=== PATIENT | female | born 1945 | race African-American/Black ===

== ENCOUNTER 2017-07-13 22:27 | Inpatient (IN) | payer MEDICAID, MEDICARE, OTHER ==
[~2017-07-13] VITALS: Ht 171.4 cm; Wt 52.2 kg
[~2017-07-13 22:27] MED LIST: CALC-146 PO
[2017-07-13] MEDS ORDERED: MORPHINE SULFATE 4 MG/ML CPJ (NOT FOR IM USE) IV STA (22:58)
[2017-07-13] MEDS ORDERED: SODIUM CHLORIDE 0.9% 1,000 ML IV ONE (22:58)
[2017-07-13] MEDS ORDERED: CEFTRIAXONE 1 G PREMIX 50 ML IV ONE (23:15)
[2017-07-13] MEDS ORDERED: METRONIDAZOLE 500 MG PREMIX 100 ML IV ONE (23:15)
[2017-07-13] MEDS ORDERED: ONDANSETRON HCL 4MG/2ML VIAL IV ONE (23:15)
[2017-07-13] MEDS ORDERED: HYDROMORPHONE HCL/PF 2MG/ML CPJ IV ONE (23:30)
[2017-07-14 00:07] LABS: BASOPHILS % 0.3 % (0.0-2.0); HEMATOCRIT. 39.5 % (36.0-48.0); HEMOGLOBIN. 12.9 g/dL (12.0-16.0); LYMPHOCYTES % 16.3 % (20.0-50.0); MEAN CORPUSCULAR HEMOGLOBIN 29.5 pg (28.0-32.0); MEAN CORPUSCULAR VOLUME 90.4 fL (81.0-99.0); MONOCYTES % 5.5 % (2.0-8.0); NEUTROPHILS % 77.9 % (40.0-76.0); PLATELET 207 x1000/uL (130-400); RED BLOOD CELL COUNT 4.37 mill/uL (4.2-5.4); RED CELL DISTRIBUTION WIDTH 13.9 % (11.6-14.6)
[2017-07-14 00:12] LABS: CHLORIDE 107 mEq/L (98-107)
[2017-07-14 00:26] LABS: INR 1.1; PROTHROMBIN TIME 11.4 sec (9.4-11.6)
[2017-07-14] MEDS ORDERED: IOHEXOL-350 100 ML BOTTLE ONE (02:32)
[2017-07-14 04:15] LABS: CLARITY URINE CLEAR (CLEAR); COLOR URINE YELLOW (YELLOW); KETONES URINE 1+ (NEGATIVE); LEUKOCYTE ESTERASE URINE NEGATIVE (NEGATIVE); NITRITE URINE NEGATIVE (NEGATIVE); OCCULT BLOOD URINE NEGATIVE (NEGATIVE); PROTEIN URINE TRACE (NEGATIVE); SPECIFIC GRAVITY URINE 1.084 (1.005-1.030); UROBILINOGEN URINE 0.2 E.U./dL (0.2-1.0)
[2017-07-14] MEDS ORDERED: HYDROMORPHONE HCL/PF 2MG/ML CPJ IV ONE (06:15)
[2017-07-14 11:00] VITALS: BP 121/70
[2017-07-14] MEDS ORDERED: MORPHINE SULFATE 4 MG/ML CPJ (NOT FOR IM USE) IV ONE (12:30)
[2017-07-14] MEDS ORDERED: ACETAMINOPHEN 650MG/20.3ML UDC GT PRN (12:45)
[2017-07-14] MEDS ORDERED: LORAZEPAM 0.5MG TABLET PO PRN (12:45)
[2017-07-14] MEDS ORDERED: ACETAMINOPHEN 650MG SUPP PR PRN (12:45)
[2017-07-14] MEDS ORDERED: NA PHOS,M-B/NA PHOS,DI-BA ENEMA 118ML PR PRN (12:45)
[2017-07-14] MEDS ORDERED: CLONIDINE 0.1MG TABLET PO PRN (12:45)
[2017-07-14] MEDS ORDERED: ACETAMINOPHEN 325MG TABLET PO PRN (12:45)
[2017-07-14] MEDS ORDERED: DIPHENHYDRAMINE 50MG/ML VIAL IV PRN (12:45)
[2017-07-14] MEDS ORDERED: HYDROCODONE/ACETAMINOPHEN 5/325MG TABLET PO PRN (13:00)
[2017-07-14 13:50] VITALS: BP 103/55
[2017-07-14] MEDS ORDERED: MORPHINE SULFATE 4 MG/ML CPJ (NOT FOR IM USE) IV PRN (14:00)
[2017-07-14] MEDS ORDERED: SODIUM CHLORIDE 0.9% 1,000 ML IV SCH (14:00)
[2017-07-14 16:20] VITALS: BP 152/59
[2017-07-14 17:18] LABS: T4 FREE 1.27 ng/dL (0.76-1.46)
[2017-07-14] MEDS: MORPHINE SULFATE 4 MG/ML CPJ (NOT FOR IM USE) IV PRN ×2 (17:28→21:35)
[2017-07-14] MEDS: ASPIRIN 81MG EC TABLET PO SCH (17:28)
[2017-07-14] MEDS ORDERED: KETOROLAC 15MG/ML VIAL IV PRN (17:30)
[2017-07-14] MEDS: ONDANSETRON HCL 4MG/2ML VIAL IV PRN (17:33)
[2017-07-14] MEDS ORDERED: LOSA50TA20 PO (17:37)
[2017-07-14] MEDS ORDERED: DICYCLOMINE HCL 10MG CAPSULE PO PRN (18:00)
[2017-07-14] MEDS ORDERED: DICYCLOMINE 10 MG/5 ML ORAL SYR PO PRN (18:00)
[2017-07-14] MEDS: DEXT 5%/0.45% NACL 1000ML 1,000 ML IV SCH (18:43)
[2017-07-14] MEDS ORDERED: LOSA25TA12 PO (18:54)
[2017-07-14] MEDS: MAGNESIUM/ALUMINUM HYDROXIDE/SIMETHICONE 30ML UDC PO PRN (19:26)
[2017-07-14 20:00] VITALS: BP 135/48
[2017-07-15] VITALS: BP 123/60
[2017-07-15] MEDS: MORPHINE SULFATE 4 MG/ML CPJ (NOT FOR IM USE) IV PRN ×3 (01:45→11:00)
[2017-07-15 04:00] VITALS: BP 121/62
[2017-07-15] MEDS: DEXT 5%/0.45% NACL 1000ML 1,000 ML IV SCH ×2 (04:08→15:24)
[2017-07-15 06:46] LABS: BASOPHILS % 0.3 % (0.0-2.0); EOSINOPHILS % 0.3 % (0.0-5.0); HEMOGLOBIN. 13.5 g/dL (12.0-16.0); LYMPHOCYTES % 20.1 % (20.0-50.0); MEAN CORPUSCULAR HEMOGLOBIN 29.6 pg (28.0-32.0); MEAN CORPUSCULAR VOLUME 89.8 fL (81.0-99.0); MEAN PLATELET VOLUME 9.2 fl (7.4-10.4); MONOCYTES % 8.5 % (2.0-8.0); NEUTROPHILS % 70.8 % (40.0-76.0); PLATELET 210 x1000/uL (130-400); RED BLOOD CELL COUNT 4.56 mill/uL (4.2-5.4); RED CELL DISTRIBUTION WIDTH 13.9 % (11.6-14.6)
[2017-07-15 08:00] VITALS: BP 126/57
[2017-07-15 08:01] LABS: CHLORIDE 107 mEq/L (98-107)
[2017-07-15 08:05] LABS: HDL CHOLESTEROL 67 mg/dL (40-59); LDL CHOLESTEROL 54 mg/dL (5-100); PHOSPHORUS 3.4 mg/dL (2.5-4.9)
[2017-07-15] MEDS: ASPIRIN 81MG EC TABLET PO SCH (09:00)
[2017-07-15] MEDS: PANTOPRAZOLE SODIUM 40 MG/VIAL IV SCH (09:10)
[2017-07-15 12:00] VITALS: BP 142/52
[2017-07-15] MEDS: ONDANSETRON HCL 4MG/2ML VIAL IV PRN ×2 (13:02→23:19)
[2017-07-15] MEDS ORDERED: LORAZEPAM 2MG/ML CPJ IV PRN (13:30)
[2017-07-15 16:00] VITALS: BP 122/42
[2017-07-15] MEDS: HYDROMORPHONE HCL/PF 2MG/ML CPJ IV PRN ×2 (17:14→23:21)
[2017-07-15] MEDS: KETOROLAC 15MG/ML VIAL IV PRN (19:48)
[2017-07-15 20:00] VITALS: BP 128/48
[2017-07-16] VITALS: BP 114/54
[2017-07-16] MEDS: KETOROLAC 15MG/ML VIAL IV PRN ×4 (02:36→23:31)
[2017-07-16 04:00] VITALS: BP 107/40
[2017-07-16] MEDS: DEXT 5%/0.45% NACL 1000ML 1,000 ML IV SCH (05:31)
[2017-07-16] MEDS: ONDANSETRON HCL 4MG/2ML VIAL IV PRN (05:43)
[2017-07-16] MEDS: HYDROMORPHONE HCL/PF 2MG/ML CPJ IV PRN ×2 (05:44→20:16)
[2017-07-16 07:35] LABS: BASOPHILS % 0.3 % (0.0-2.0); EOSINOPHILS % 0.6 % (0.0-5.0); HEMATOCRIT. 41.4 % (36.0-48.0); HEMOGLOBIN. 13.8 g/dL (12.0-16.0); LYMPHOCYTES % 20.4 % (20.0-50.0); MEAN CORPUSCULAR HEMOGLOBIN 29.8 pg (28.0-32.0); MEAN CORPUSCULAR VOLUME 89.8 fL (81.0-99.0); MEAN PLATELET VOLUME 9.4 fl (7.4-10.4); NEUTROPHILS % 67.7 % (40.0-76.0); PLATELET 203 x1000/uL (130-400); RED BLOOD CELL COUNT 4.61 mill/uL (4.2-5.4); RED CELL DISTRIBUTION WIDTH 13.8 % (11.6-14.6)
[2017-07-16 08:00] VITALS: BP 129/57
[2017-07-16] MEDS: ASPIRIN 81MG EC TABLET PO SCH (08:03)
[2017-07-16] MEDS: PANTOPRAZOLE SODIUM 40 MG/VIAL IV SCH (08:57)
[2017-07-16] MEDS ORDERED: ACETAMINOPHEN 650MG SUPP PR PRN (13:00)
[2017-07-16] MEDS ORDERED: ONDANSETRON HCL 4MG/2ML VIAL IV PRN ×2 (13:00→14:15)
[2017-07-16] MEDS ORDERED: MORPHINE SULFATE 4 MG/ML CPJ (NOT FOR IM USE) IV PRN (13:00)
[2017-07-16] MEDS ORDERED: ROCURONIUM BROMIDE 10MG/ML VIAL 5ML IV ONE (13:41)
[2017-07-16] MEDS ORDERED: PROPOFOL 200MG/20ML VIAL IV ONE (13:41)
[2017-07-16] MEDS ORDERED: CEFAZOLIN SODIUM 1000MG/VIAL ONE (13:59)
[2017-07-16] MEDS ORDERED: DEXAMETHASONE 4MG/ML 1ML VIAL ONE (13:59)
[2017-07-16] MEDS ORDERED: VASOPRESSIN 20 UNIT/ML 1ML ONE (14:10)
[2017-07-16] MEDS ORDERED: HYDROMORPHONE HCL/PF 2MG/ML CPJ IV PRN (14:15)
[2017-07-16] MEDS ORDERED: LABETALOL 5MG/ML SYR 20 MG/4 ML SYRINGE IV PRN (14:15)
[2017-07-16] MEDS ORDERED: SKIN ADHESIVE 0.7 GM EA TOP ONE (14:32)
[2017-07-16] MEDS ORDERED: NEOSTIGMINE METHYLSULFATE 1MG/ML 10 ML VIAL ONE (14:34)
[2017-07-16] MEDS ORDERED: GLYCOPYRROLATE 0.2 MG/ML 2ML VIAL ONE ×2 (14:34→14:35)
[2017-07-16] MEDS: MEPERIDINE HCL/PF 25MG/ML CPJ IV PRN ×2 (15:27→15:50)
[2017-07-16 17:25] VITALS: BP 141/71
[2017-07-16] MEDS ORDERED: DEXTROSE 50% WATER 50ML SYRINGE IV PRN (19:45)
[2017-07-16 20:00] VITALS: BP 141/72
[2017-07-16] MEDS: DEXT 5%/0.45% NACL KCL 20MEQ/L 1,000 ML IV SCH (20:04)
[2017-07-16] MEDS: INSULIN LISPRO 100 UNITS/ML SUBCUT SCH (20:08)
[2017-07-16] MEDS: BLOOD SUGAR DIAGNOSTIC STRIP TEST SCH (20:08)
[2017-07-16] MEDS: CEFAZOLIN 1000MG PREMIX 50 ML IV SCH (22:57)
[2017-07-16 23:32] VITALS: BP 128/78
[2017-07-16] MEDS: METRONIDAZOLE 500 MG PREMIX 100 ML IV SCH (23:34)
[2017-07-16] MEDS: FAMOTIDINE 20MG/2ML VIAL IV SCH (23:38)
[2017-07-17 04:00] VITALS: BP 134/70
[2017-07-17] MEDS: CEFAZOLIN 1000MG PREMIX 50 ML IV SCH (06:08)
[2017-07-17] MEDS: INSULIN LISPRO 100 UNITS/ML SUBCUT SCH ×4 (06:17→20:05)
[2017-07-17] MEDS: BLOOD SUGAR DIAGNOSTIC STRIP TEST SCH ×4 (06:17→20:05)
[2017-07-17] MEDS: METRONIDAZOLE 500 MG PREMIX 100 ML IV SCH ×2 (07:00→14:09)
[2017-07-17 08:00] VITALS: BP 130/67
[2017-07-17] MEDS: ASPIRIN 81MG EC TABLET PO SCH (08:11)
[2017-07-17] MEDS: PANTOPRAZOLE SODIUM 40 MG/VIAL IV SCH (10:21)
[2017-07-17] MEDS: FAMOTIDINE 20MG/2ML VIAL IV SCH (10:21)
[2017-07-17] MEDS: DEXT 5%/0.45% NACL KCL 20MEQ/L 1,000 ML IV SCH ×2 (10:22→20:37)
[2017-07-17 12:00] VITALS: BP 124/52
[2017-07-17] MEDS: KETOROLAC 15MG/ML VIAL IV PRN ×2 (12:39→20:17)
[2017-07-17 13:32] LABS: HEMATOCRIT. 39.3 % (36.0-48.0); HEMOGLOBIN. 13.3 g/dL (12.0-16.0); MEAN CORPUSCULAR HEMOGLOBIN 30.4 pg (28.0-32.0); MEAN CORPUSCULAR VOLUME 89.6 fL (81.0-99.0); MEAN PLATELET VOLUME 9.3 fl (7.4-10.4); PLATELET 174 x1000/uL (130-400); RED BLOOD CELL COUNT 4.39 mill/uL (4.2-5.4); RED CELL DISTRIBUTION WIDTH 13.7 % (11.6-14.6)
[2017-07-17 14:01] LABS: PLATELET ESTIMATE NORMAL
[2017-07-17 14:12] LABS: CHLORIDE 111 mEq/L (98-107)
[2017-07-17 16:00] VITALS: BP 112/44
[2017-07-17 20:00] VITALS: BP 124/52
[2017-07-18] VITALS: BP 119/56
[2017-07-18 04:00] VITALS: BP 92/48
[2017-07-18] MEDS: KETOROLAC 15MG/ML VIAL IV PRN ×3 (04:11→19:54)
[2017-07-18] MEDS: BLOOD SUGAR DIAGNOSTIC STRIP TEST SCH ×4 (06:04→20:20)
[2017-07-18] MEDS: INSULIN LISPRO 100 UNITS/ML SUBCUT SCH ×4 (06:04→20:21)
[2017-07-18] MEDS: DEXT 5%/0.45% NACL KCL 20MEQ/L 1,000 ML IV SCH ×2 (06:25→17:51)
[2017-07-18] MEDS: ASPIRIN 81MG EC TABLET PO SCH (07:34)
[2017-07-18 07:46] VITALS: BP 115/58
[2017-07-18 07:54] LABS: HEMATOCRIT. 35.3 % (36.0-48.0); HEMOGLOBIN. 11.9 g/dL (12.0-16.0); MEAN CORPUSCULAR HEMOGLOBIN 29.9 pg (28.0-32.0); MEAN CORPUSCULAR VOLUME 89.1 fL (81.0-99.0); MEAN PLATELET VOLUME 9.5 fl (7.4-10.4); PLATELET 171 x1000/uL (130-400); RED BLOOD CELL COUNT 3.96 mill/uL (4.2-5.4); RED CELL DISTRIBUTION WIDTH 13.7 % (11.6-14.6)
[2017-07-18 08:38] LABS: CHLORIDE 112 mEq/L (98-107)
[2017-07-18] MEDS: FAMOTIDINE 20MG/2ML VIAL IV SCH (10:13)
[2017-07-18] MEDS: PANTOPRAZOLE SODIUM 40 MG/VIAL IV SCH (10:13)
[2017-07-18 12:00] VITALS: BP 105/52
[2017-07-18 12:01] LABS: PLATELET ESTIMATE NORMAL
[2017-07-18 16:00] VITALS: BP 123/62
[2017-07-18 20:00] VITALS: BP 140/60
[2017-07-18] MEDS: MAGNESIUM/ALUMINUM HYDROXIDE/SIMETHICONE 30ML UDC PO PRN (22:53)
[2017-07-19] VITALS: BP 119/53
[2017-07-19] MEDS: HYDROMORPHONE HCL/PF 2MG/ML CPJ IV PRN ×2 (00:36→20:19)
[2017-07-19 04:00] VITALS: BP 125/65
[2017-07-19] MEDS: DEXT 5%/0.45% NACL KCL 20MEQ/L 1,000 ML IV SCH ×2 (04:56→16:06)
[2017-07-19] MEDS: BLOOD SUGAR DIAGNOSTIC STRIP TEST SCH ×4 (06:09→20:22)
[2017-07-19] MEDS: INSULIN LISPRO 100 UNITS/ML SUBCUT SCH ×4 (06:09→20:22)
[2017-07-19 08:00] VITALS: BP 134/65
[2017-07-19] MEDS: FAMOTIDINE 20MG/2ML VIAL IV SCH (08:13)
[2017-07-19] MEDS: PANTOPRAZOLE SODIUM 40 MG/VIAL IV SCH (08:13)
[2017-07-19] MEDS: ASPIRIN 81MG EC TABLET PO SCH ×2 (08:14→08:49)
[2017-07-19 09:17] LABS: HEMATOCRIT. 33.4 % (36.0-48.0); HEMOGLOBIN. 11.7 g/dL (12.0-16.0); MEAN CORPUSCULAR HEMOGLOBIN 30.7 pg (28.0-32.0); MEAN PLATELET VOLUME 8.9 fl (7.4-10.4); PLATELET 170 x1000/uL (130-400); RED BLOOD CELL COUNT 3.79 mill/uL (4.2-5.4); RED CELL DISTRIBUTION WIDTH 13.9 % (11.6-14.6)
[2017-07-19 10:39] LABS: CHLORIDE 111 mEq/L (98-107)
[2017-07-19 12:00] VITALS: BP 145/64
[2017-07-19] MEDS: KETOROLAC 15MG/ML VIAL IV PRN (14:19)
[2017-07-19 16:00] VITALS: BP 129/66
[2017-07-19 20:00] VITALS: BP 144/68
[2017-07-19 20:25] LABS: PLATELET ESTIMATE NORMAL
[2017-07-20] VITALS: BP 130/60
[2017-07-20] MEDS: DEXT 5%/0.45% NACL KCL 20MEQ/L 1,000 ML IV SCH ×4 (00:33→17:11)
[2017-07-20 04:00] VITALS: BP 148/72
[2017-07-20] MEDS: KETOROLAC 15MG/ML VIAL IV PRN ×2 (05:31→20:07)
[2017-07-20] MEDS: BLOOD SUGAR DIAGNOSTIC STRIP TEST SCH ×4 (06:02→20:10)
[2017-07-20] MEDS: INSULIN LISPRO 100 UNITS/ML SUBCUT SCH ×4 (06:02→20:10)
[2017-07-20 06:15] LABS: HEMATOCRIT. 32.9 % (36.0-48.0); HEMOGLOBIN. 11.2 g/dL (12.0-16.0); MEAN CORPUSCULAR HEMOGLOBIN 30.1 pg (28.0-32.0); MEAN CORPUSCULAR VOLUME 88.4 fL (81.0-99.0); MEAN PLATELET VOLUME 8.9 fl (7.4-10.4); PLATELET 190 x1000/uL (130-400); RED BLOOD CELL COUNT 3.72 mill/uL (4.2-5.4); RED CELL DISTRIBUTION WIDTH 13.8 % (11.6-14.6)
[2017-07-20 06:47] LABS: CHLORIDE 110 mEq/L (98-107)
[2017-07-20 08:00] VITALS: BP 116/63
[2017-07-20] MEDS: PANTOPRAZOLE SODIUM 40 MG/VIAL IV SCH (08:52)
[2017-07-20] MEDS: FAMOTIDINE 20MG/2ML VIAL IV SCH (08:53)
[2017-07-20] MEDS: ASPIRIN 81MG EC TABLET PO SCH (09:00)
[2017-07-20] MEDS: HYDROMORPHONE HCL/PF 2MG/ML CPJ IV PRN (09:48)
[2017-07-20 12:00] VITALS: BP 115/70
[2017-07-20 12:16] LABS: PLATELET ESTIMATE NORMAL
[2017-07-20 16:00] VITALS: BP 155/59
[2017-07-20 20:00] VITALS: BP 157/76
[2017-07-21] VITALS (7 sets, daily range): BP systolic 142–162; BP diastolic 73–80
[2017-07-21] MEDS: HYDROMORPHONE HCL/PF 2MG/ML CPJ IV PRN (00:34)
[2017-07-21] MEDS: DEXT 5%/0.45% NACL KCL 20MEQ/L 1,000 ML IV SCH ×2 (02:43→11:56)
[2017-07-21] MEDS: KETOROLAC 15MG/ML VIAL IV PRN (06:25)
[2017-07-21] MEDS: INSULIN LISPRO 100 UNITS/ML SUBCUT SCH ×3 (06:26→16:53)
[2017-07-21] MEDS: BLOOD SUGAR DIAGNOSTIC STRIP TEST SCH ×3 (06:26→16:53)
[2017-07-21 07:28] LABS: HEMATOCRIT. 35.7 % (36.0-48.0); HEMOGLOBIN. 12.3 g/dL (12.0-16.0); MEAN CORPUSCULAR HEMOGLOBIN 30.1 pg (28.0-32.0); MEAN CORPUSCULAR VOLUME 87.5 fL (81.0-99.0); MEAN PLATELET VOLUME 8.8 fl (7.4-10.4); PLATELET 222 x1000/uL (130-400); RED BLOOD CELL COUNT 4.08 mill/uL (4.2-5.4)
[2017-07-21] MEDS: PANTOPRAZOLE SODIUM 40 MG/VIAL IV SCH (08:46)
[2017-07-21] MEDS: ASPIRIN 81MG EC TABLET PO SCH (08:46)
[2017-07-21 18:29] LABS: PLATELET ESTIMATE NORMAL
== END 2017-07-21 20:08 | disposition home or self-care (01) | DRG 330 ==
LOC: ER 22:44 → 6EST 07-14 04:46 → EDBEDREQSVC 07-14 04:52 → EDBEDREQ 07-14 04:52 → EDBEDREQTM 07-14 04:52 → ENRESERV 07-14 09:47 → 8WST 07-14 16:18
PROVIDERS: ADMIT Internal Medicine; ATTEND Internal Medicine
PROC: 0DB80ZZ Excision of Small Intestine, Open Approach (ICD-10-PCS; principal; 2017-07-16 11:30)
DX: K56.609 Unspecified intestinal obstruction, unspecified as to partial versus complete obstruction (principal); E44.1 Mild protein-calorie malnutrition; E11.9 Type 2 diabetes mellitus without complications; I11.9 Hypertensive heart disease without heart failure; D72.825 Bandemia; F17.210 Nicotine dependence, cigarettes, uncomplicated; Z68.1 Body mass index [BMI] 19.9 or less, adult; K56.50 Intestinal adhesions [bands], unspecified as to partial versus complete obstruction; K56.7 Ileus, unspecified; Z88.6 Allergy status to analgesic agent
CPT/HCPCS: 36415; 71045; 74018; 74174; 74176; 76700; 80048; 80053; 80061; 81003; 82248; 82962; 83605; 83690; 83735; 84100; 84439; 84443; 84480; 85025; 85610; 87040; 87086; 88307; 93005; 93306; 96365; 96368; 96375; 97116; 97162; 99285; C1893; C9113; J0690; J0696; J1100; J1170; J1885; J2060; J2175; J2270; J2405; J2704; J2710; J3490; J7030; Q9967

== ENCOUNTER 2017-07-23 10:13 | Emergency (ER) | payer MEDICARE ==
[~2017-07-23] VITALS: Ht 170.2 cm; Wt 52.0 kg
[~2017-07-23 10:13] MED LIST changes: +LOSA25TA12 PO
[2017-07-23] MEDS ORDERED: MORPHINE SULFATE 4 MG/ML CPJ (NOT FOR IM USE) IV STA (10:43)
[2017-07-23] MEDS ORDERED: ONDANSETRON HCL 4MG/2ML VIAL IV STA (10:43)
[2017-07-23] MEDS ORDERED: HYDROCODONE/ACETAMINOPHEN 5/325MG TABLET PO ONE (11:15)
[2017-07-23 11:51] LABS: HEMATOCRIT. 37.2 % (36.0-48.0); HEMOGLOBIN. 12.8 g/dL (12.0-16.0); MEAN CORPUSCULAR HEMOGLOBIN 30.1 pg (28.0-32.0); MEAN CORPUSCULAR VOLUME 87.8 fL (81.0-99.0); MEAN PLATELET VOLUME 7.7 fl (7.4-10.4); PLATELET 354 x1000/uL (130-400); RED BLOOD CELL COUNT 4.24 mill/uL (4.2-5.4); RED CELL DISTRIBUTION WIDTH 14.4 % (11.6-14.6)
[2017-07-23 11:54] LABS: INR 1.1; PROTHROMBIN TIME 11.6 sec (9.4-11.6)
[2017-07-23 12:00] LABS: CHLORIDE 101 mEq/L (98-107)
[2017-07-23 13:21] VITALS: BP 174/79
[2017-07-23 13:48] LABS: PLATELET ESTIMATE NORMAL
== END 2017-07-23 14:04 | disposition home or self-care (01) ==
LOC: ER 11:16
DX: T81.4XXA Infection following a procedure, initial encounter (principal); D72.825 Bandemia; G89.18 Other acute postprocedural pain; Y83.9 Surgical procedure, unspecified as the cause of abnormal reaction of the patient, or of later complication, without mention of misadventure at the time of the procedure; Y92.098 Other place in other non-institutional residence as the place of occurrence of the external cause; K57.90 Diverticulosis of intestine, part unspecified, without perforation or abscess without bleeding; F17.210 Nicotine dependence, cigarettes, uncomplicated; I10 Essential (primary) hypertension; Z88.5 Allergy status to narcotic agent
CPT/HCPCS: 36415; 80053; 83605; 85025; 85610; 99284